=== PATIENT | male | born 1940 | race Caucasian/White ===

== ENCOUNTER 2017-07-20 06:12 | Day surgery (SDC) | payer OTHER ==
[2017-07-16 16:48] VITALS: BMI 23.5
[2017-07-20 06:29] VITALS: BP 129/76; PULSE 74; TEMP 97.7
[2017-07-20] MEDS ORDERED: MIDAZOLAM HCL 2 MG/2 ML SINGLE DOSE VIAL ONE (07:48)
[2017-07-20] MEDS ORDERED: PROPOFOL 20 ML ONE (07:48)
[2017-07-20] MEDS ORDERED: SUCCINYLCHOLINE CHLORIDE 200 MG/10 ML VIAL ONE (07:49)
== END 2017-07-20 10:42 | disposition home or self-care (01) ==
LOC: JASU-SURG 06:12
PROVIDERS: ATTEND Urology
PROC: 0TJB8ZZ Inspection of Bladder, Via Natural or Artificial Opening Endoscopic (ICD-10-PCS; principal; 2017-07-20)
DX: Z53.8 Procedure and treatment not carried out for other reasons (principal)